=== PATIENT | female | born 1930 | race Caucasian/White ===

== ENCOUNTER 2019-06-04 11:50 | Emergency (ER) | payer MEDICARE, MEDICAID ==
[2019-06-04 12:52] LABS: #Eosinphils 0.1 thou/uL (0.0-0.7); #Lymphocytes 1.4 thou/uL (1.20-3.40); #Monocytes 0.4 thou/uL (0.11-0.59); #Neutrophils 3.8 thou/uL (1.40-6.50); %Basophils 0.8 % (0.0-1.0); %Lymphocytes 24.8 % (21.0-51.0); %Neutrophils 66.4 % (42.0-75.0); Hemoglobin 12.3 g/dL (12.0-16.0); Mean Corpuscular HGB CONC 32.7 g/dL (32.0-36.0); Mean Corpuscular Hemoglobin 28.5 pg (27.0-31.0); Mean Corpuscular Volume 87.4 fL (78.0-98.0); Mean Platelet Volume 7.6 fL (7.4-10.4); Platelet Count 180 thou/uL (130-400); RBC Distribution Width 11.9 % (11.5-14.5); Red Blood Cell (RBC) Count 4.33 mill/uL (4.20-5.40); White Blood Cell (WBC) Count 5.8 thou/uL (4.8-10.8)
[2019-06-04 13:16] LABS: ALT (SGPT) 8 U/L (8-55); AST (SGOT) 19 U/L (5-34); Albumin 3.9 g/dL (3.4-4.8); Alkaline Phosphatase 55 U/L (40-150); Anion Gap 12 mmol/L (10-20); BUN (Urea Nitrogen) 14 mg/dL (9.8-20.1); Bilirubin, Total 0.4 mg/dL (0.2-1.2); Calc. Creatinine Clearance 0 mL/min (70-130); Calcium 10.1 mg/dL (7.8-10.44); Carbon Dioxide 28 mmol/L (23-31); Chloride 98 mmol/L (98-107); Estimated GFR-MDRD 47; Globulin 2.9 g/dL (2.4-3.5); Glucose 157 mg/dL (83-110); Lipase 24 U/L (8-78); Potassium 3.7 mmol/L (3.5-5.1); Protein, Total 6.8 g/dL (6.0-8.3); Sodium 134 mmol/L (136-145)
--- NOTE | 2019-06-04 13:16 | CT ---
Exam: Head CT without contrast HISTORY: Altered mental status COMPARISON: 04/24/2006 FINDINGS: Hemorrhage: No intraparenchymal hemorrhage or extra-axial hematoma. Brain parenchyma: Cortical yan-white matter differentiation is preserved. No mass effect or midline shift. Basilar cisterns are patent.Age-appropriate atrophy. Confluent white matter hypodensities likely due to chronic small vessel ischemic changes. Superimposed white matter infarct could be obscu red. Remote lacunar infarct involving the right thalamus. Ventricular system: Ventricles and sulci are patent and symmetric. Calvarium: Intact. Sinuses and mastoid air cells: Adequate aeration. IMPRESSION: 1. No acute intracranial process 2. Atrophy, age-appropriate 3. White matter hypodensities likely due to chronic small vessel ischemic change. 4. Further evaluation with brain MRI if clinically warranted
[2019-06-04] MEDS ORDERED: hydrALAZINE 20 MG/ML VIAL ONE (13:33)
[2019-06-04 14:12] LABS: Bilirubin Negative (Negative); Blood, Urine Negative (Negative); Clarity Clear (Clear); Glucose, Urine (Dipstick) Normal (Negative); Leukocyte Negative Leu/uL (Negative); Nitrite Negative (Negative); Protein, Urine (Dipstick) Negative (Neg-Trace); Urobilinogen Normal mg/dL (Less than 2)
--- NOTE | 2019-06-04 14:24 | RAD ---
Left knee 4 views HISTORY: Left knee pain. FINDINGS: Joint space narrowing at the lateral compartment with chronic appearing decompression of th e articular surface of the lateral tibial plateau. Bulky osteophytosis. A large irregular ossification posterior to the intercondylar fossa measures up to 3.0 cm. No acute fracture, dislocati on, or fluid distention of the suprapatellar bursa. Calcification over the arterial structures. IMPRESSION: Prominent degenerative changes, involving primarily the lateral compartment. Large intrac apsular loose body. No acute osseous abnormalities are demonstrated. Atherosclerosis.
--- NOTE | 2019-06-04 14:27 | RAD ---
AP pelvis one view HISTORY: Pelvic pain and leg pain. FINDINGS: Sacral alae and pelvic rings are intact. No displaced fractures evident. Right hip prosthes is partially visualized. No perihardware lucency evident. Phleboliths project over the pelvis. IMPRESSION: No acute osseous abnormalities are demonstrated.
--- NOTE | 2019-06-04 15:09 | RAD ---
Exam:Left hip 2 views HISTORY: Pain COMPARISON: None FINDINGS: Mild loss of joint space height. No fracture. Degenerative changes of the symphysis pubis. Visualized bony pelvis is intact. IMPRESSION: Mild degenerative change.
== END 2019-06-04 15:10 | disposition home or self-care (01) ==
LOC: ERS 11:50
DX: R41.82 Altered mental status, unspecified (principal); R53.1 Weakness; I25.10 Atherosclerotic heart disease of native coronary artery without angina pectoris; E03.9 Hypothyroidism, unspecified; E78.5 Hyperlipidemia, unspecified; I10 Essential (primary) hypertension; F03.90 Unspecified dementia, unspecified severity, without behavioral disturbance, psychotic disturbance, mood disturbance, and anxiety; Z79.899 Other long term (current) drug therapy; Z79.82 Long term (current) use of aspirin
CPT/HCPCS: 36415; 51701; 70450; 72170; 80053; 81003; 83690; 85025; 93005; 94760; 96374; A4353; J0360